=== PATIENT | female | born 1955 | race Caucasian/White ===

== ENCOUNTER → 2017-11-20 | Outpatient (CLI) | payer OTHER ==
[~2017-11-20] MED LIST: ASPI81CH PO; CHOL10002 PO; FISH1000 PO; HYDCHL12.5 PO; LEVSOD50 PO; OXYC10TA19 PO; RED YEAST RICE30 GM PO
[2017-11-22 14:28] LABS: HPV Genotype 16 Not Detected (NOTDET); HPV Genotype 18 Not Detected (NOTDET)
[2017-12-01 10:02] LABS: HPV High Risk Other Not Detected (NOTDET)
== END ==
LOC: LAB 14:14
PROVIDERS: Obstetrics & Gynecology
DX: Z01.419 Encounter for gynecological examination (general) (routine) without abnormal findings (principal)
CPT/HCPCS: 87624; G0123